=== PATIENT | female | born 1975 | race Caucasian/White ===

== ENCOUNTER 2024-03-24 07:52 | Emergency (ER) | payer BC, OTHER ==
[2024-03-24] MEDS ORDERED: Ibuprofen 800 MG TAB ONE (08:20)
== END 2024-03-24 09:10 | disposition home or self-care (01) ==
LOC: MADERS 07:52
DX: S63.601A Unspecified sprain of right thumb, initial encounter (principal); V43.52XA Car driver injured in collision with other type car in traffic accident, initial encounter; Y93.89 Activity, other specified; Z55.6 Problems related to health literacy